=== PATIENT | male | born 1995 | race Caucasian/White ===

== ENCOUNTER 2016-08-20 16:52 | Emergency (ER) | payer SELFPAY ==
[~2016-08-20] VITALS: Ht 172.7 cm; Wt 69.0 kg
[2016-08-20 17:39] VITALS: BP 110/65
[2016-08-20] MEDS ORDERED: ACETAMINOPHEN 325MG TABLET PO ONE (18:15)
== END 2016-08-20 20:11 | disposition home or self-care (01) ==
LOC: ER 16:54
DX: J11.1 Influenza due to unidentified influenza virus with other respiratory manifestations (principal); F17.200 Nicotine dependence, unspecified, uncomplicated; F12.10 Cannabis abuse, uncomplicated; Z88.0 Allergy status to penicillin
CPT/HCPCS: 87070; 87430; 99284

== ENCOUNTER 2016-08-21 21:14 | Emergency (ER) | payer SELFPAY ==
[~2016-08-21] VITALS: Ht 175.3 cm; Wt 69.0 kg
[2016-08-21] MEDS ORDERED: DEXAMETHASONE 10MG/ML 1ML VIAL IM ONE (23:45)
[2016-08-21] MEDS ORDERED: KETOROLAC 60MG/2ML VIAL IM ONE (23:45)
[2016-08-22 00:23] VITALS: BP 131/70
== END 2016-08-22 01:24 | disposition home or self-care (01) ==
LOC: ER 21:14
DX: J02.0 Streptococcal pharyngitis (principal); F12.10 Cannabis abuse, uncomplicated; Z88.0 Allergy status to penicillin
CPT/HCPCS: 96372; 99284; J1100; J1885; Z7610